=== PATIENT | female | born 1975 | race Caucasian/White ===

== ENCOUNTER 2017-01-03 13:50 | Emergency (ER) | payer OTHER ==
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
--- NOTE | 2017-01-03 14:29 | ED CLINICAL REPORT ---
Clinical Report - Physicians/Mid Levels [facility] [address] [place] [address] 01/03/2017 13:52 Patient: ASHLEY YARBROUGH Time Seen: 13:55. Arrived- By private vehicle. Historian- patient. HISTORY OF PRESENT ILLNESS Chief Complaint: HEADACHE. BACKPAIN. This started 2 days ago. It was gradual in onset. It is described as tightness. Located in the frontal and left parietal region. At its maximum, severity described as moderate. When seen in the E.D., severity described as moderate. The patient has had nausea and vomiting. The vomiting has occurred only once. No preceding symptoms, blurred vision, photophobia, numbness or weakness. (BACK SPASMS: Mid low back without radiation. No incontinence. Clonidine). Similar symptoms previously: Several times. REVIEW OF SYSTEMS No carbon monoxide exposure, tick bite, head injury, fever or decreased vision. No ear pain, sore throat, chest pain, difficulty breathing or abdominal pain. No black stools, bloody stools, constipation, urinary frequency or alteration in mental status. No difficulty with urination. The patient has had back pain. PAST HISTORY PCP: Looking - PROBLEMS: Headaches Back pain Prior Methadone use ADDITIONAL SURGERIES: Hysterectomy. Knee Surgery. Ovarian cysts . Tubal Ligation. SOCIAL HISTORY Smoker- current status unknown. ADDITIONAL NOTES The nursing notes have been reviewed. PHYSICAL EXAM Vital Signs: 01/03/2017 14:02 BP: 150/93. HR: 89. RR: 18. O2 saturation: 99%. Temp: 98.4 F. Appearance: Alert. No acute distress. Eyes: Pupils equal, round and reactive to light. No visual field deficit. Eyes normal inspection. No double vision. No dysconjugate gaze. No nystagmus. No pupillary exam. ENT: Pharynx normal. Neck: Normal inspection. CVS: Normal heart rate and rhythm. Heart sounds normal. Respiratory: No respiratory distress. Breath sounds normal. Abdomen: Soft and nontender. Extremities: Extremities exhibit normal ROM. No lower extremity edema. Neuro: Oriented X 3. Alert. Mood/affect normal. Speech normal. Cranial nerves normal (as tested). No cranial nerve deficit. No motor deficit. No sensory deficit. Reflexes normal. CLINICAL IMPRESSION Tension-type headache. Lumbar strain. INSTRUCTIONS (Establish primary care). Prescription Medications: Robaxin 750 mg: take 1-2 orally every 6 hours as needed for muscle spasm or pain. Dispense thirty (30). No refill. Substitution is permissible. Clonidine 0.2 mg: take 1 orally every 24 hours. Dispense twenty-five (25). Understanding of the discharge instructions verbalized by patient. Follow-up with: [facility], , , [address], [place] [address]; Jean-Pierre Mendoza MD, [facility], , [facility] [place], [address] [place] [address] Follow up. Call for an appointment. (Electronically signed by Pierce Tucker MD 01/05/2017 9:12)
--- NOTE | 2017-01-03 14:29 | ED CLINICAL REPORT ---
Clinical Report - Physicians/Mid Levels [facility] [address] [place] [address] 01/03/2017 13:52 Patient: ASHLEY YARBROUGH Time Seen: 13:55. Arrived- By private vehicle. Historian- patient. HISTORY OF PRESENT ILLNESS Chief Complaint: HEADACHE. BACKPAIN. This started 2 days ago. It was gradual in onset. It is described as tightness. Located in the frontal and left parietal region. At its maximum, severity described as moderate. When seen in the E.D., severity described as moderate. The patient has had nausea and vomiting. The vomiting has occurred only once. No preceding symptoms, blurred vision, photophobia, numbness or weakness. (BACK SPASMS: Mid low back without radiation. No incontinence. Clonidine). Similar symptoms previously: Several times. REVIEW OF SYSTEMS No carbon monoxide exposure, tick bite, head injury, fever or decreased vision. No ear pain, sore throat, chest pain, difficulty breathing or abdominal pain. No black stools, bloody stools, constipation, urinary frequency or alteration in mental status. No difficulty with urination. The patient has had back pain. PAST HISTORY PCP: Looking - PROBLEMS: Headaches Back pain Prior Methadone use ADDITIONAL SURGERIES: Hysterectomy. Knee Surgery. Ovarian cysts . Tubal Ligation. SOCIAL HISTORY Smoker- current status unknown. ADDITIONAL NOTES The nursing notes have been reviewed. PHYSICAL EXAM Vital Signs: 01/03/2017 14:02 BP: 150/93. HR: 89. RR: 18. O2 saturation: 99%. Temp: 98.4 F. Appearance: Alert. No acute distress. Eyes: Pupils equal, round and reactive to light. No visual field deficit. Eyes normal inspection. No double vision. No dysconjugate gaze. No nystagmus. No pupillary exam. ENT: Pharynx normal. Neck: Normal inspection. CVS: Normal heart rate and rhythm. Heart sounds normal. Respiratory: No respiratory distress. Breath sounds normal. Abdomen: Soft and nontender. Extremities: Extremities exhibit normal ROM. No lower extremity edema. Neuro: Oriented X 3. Alert. Mood/affect normal. Speech normal. Cranial nerves normal (as tested). No cranial nerve deficit. No motor deficit. No sensory deficit. Reflexes normal. CLINICAL IMPRESSION Tension-type headache. Lumbar strain. INSTRUCTIONS (Establish primary care). Prescription Medications: Robaxin 750 mg: take 1-2 orally every 6 hours as needed for muscle spasm or pain. Dispense thirty (30). No refill. Substitution is permissible. Clonidine 0.2 mg: take 1 orally every 24 hours. Dispense twenty-five (25). Understanding of the discharge instructions verbalized by patient. Follow-up with: [facility], , , [address], [place] [address]; Jean-Pierre Mendoza MD, [facility], , [facility], [address] [place] [address] Follow up. Call for an appointment. (Electronically signed by Pierce Tucker MD 01/05/2017 9:12)
--- NOTE | 2017-01-05 09:12 | ED MED RECONCILIATION SUMMARY ---
Patient: ASHLEY YARBROUGH Medication Reconciliation Report [facility] VisitID: [id number] [address] [place] [address] 41y, F Registration Date/Time: 01/03/2017 Weight: 86.6 kg Height/Length: 64 in. BMI: 32.8 ALLERGIES: No Known Drug Allergy The patient's Home Medications are listed below: THE FOLLOWING MEDICATIONS NEED TO BE RECONCILED: TraMADol HCl Oral The source(s) of the original Home Medication information: Not obtained. The following Medications were given to the patient in the Emergency Department: None. The following Medications were prescribed to the patient: Robaxin 750 mg: take 1-2 orally every 6 hours as needed for muscle spasm or pain. Dispense thirty (30). No refill. Substitution is permissible. -- Pierce Tucker MD Clonidine 0.2 mg: take 1 orally every 24 hours. Dispense twenty-five (25). -- Pierce Tucker MD
--- NOTE | 2017-01-05 09:12 | ED DISCHARGE INSTRUCTIONS ---
Patient: ASHLEY YARBROUGH General Instructions [facility] VisitID: [id number] [address], [place], [place] [id number] 41y, F Registration Date/Time: 01/03/2017 Tension-type headache. Lumbar strain. INSTRUCTIONS (Establish primary care). Prescription Medications: Robaxin 750 mg: take 1-2 orally every 6 hours as needed for muscle spasm or pain. Dispense thirty (30). No refill. Substitution is permissible. Clonidine 0.2 mg: take 1 orally every 24 hours. Dispense twenty-five (25). Understanding of the discharge instructions verbalized by patient. Follow-up with: [facility], , , [address], , [place] [phone]; Jean-Pierre Mendoza MD, [facility], , [facility], [address] [place] [address] Follow up. Call for an appointment. ADDITIONAL INFORMATION Tension Headache Muscle Tension Headache (also called "stress headache") is a very common cause of head pain. Under stress, some people tense the muscles of their shoulder, neck and scalp without knowing it. If this lasts long enough, a headache can occur. These headaches can be very painful and last for hours or even days. Home Care: If you were given pain medicine for this headache, do not drive yourself home. Arrange for a ride, instead. When you get home, try to sleep. You should feel much better when you wake up. Heat to the back of your neck may relieve neck spasm. Drink only clear liquids or eat a very light diet to avoid nausea/vomiting until symptoms improve. Preventing Future Headaches Identify the sources of stress in your life. These may not be obvious! Learn new ways to handle your stress, such as regular exercise, biofeedback, self-hypnosis and meditation. For more information about this, consult your doctor or go to a local bookstore and review the many books and tapes on this subject. At the first sign of a tension headache, take time out if possible. Remove yourself from the stressful situation, find a quiet comfortable place to sit or lie down and let yourself relax. Heat and deep massage of the tight areas in the neck and shoulders may help reduce muscle spasm. Medicine, such as ibuprofen (Advil or Motrin) or a prescribed muscle relaxant may be helpful at this point. Follow Up with your doctor if the headache is not better within the next 24 hours. If you have frequent headaches you should discuss a treatment plan with your primary care doctor. Ask if you can have medicine to take at home the next time you get a bad headache. This may avoid the need for a visit to the emergency department in the future. Poorly controlled chronic headaches may require a referral to a neurologist (headache specialist). Get Prompt Medical Attention if any of the following occur: Worsening of your head pain or no improvement within 24 hours Repeated vomiting (unable to keep liquids down) Fever of 100.4F (38C) or higher, or as directed by your healthcare provider Stiff neck Extreme drowsiness, confusion or fainting Dizziness, vertigo (dizziness with spinning sensation) Weakness of an arm or leg or one side of the face Difficulty with speech or vision Back Pain [Acute Or Chronic] Back pain is usually caused by an injury to the muscles or ligaments of the spine. Sometimes the disks that separate each bone in the spine may bulge and cause pain by pressing on a nearby nerve. Back pain may also appear after a sudden twisting/bending force (such as in a car accident), after a simple awkward movement, or lifting something heavy with poor body positioning. In either case, muscle spasm is often present and adds to the pain. Acute back pain usually gets better in one to two weeks. Back pain related to disk disease, arthritis in the spinal joints or spinal stenosis (narrowing of the spinal canal) can become chronic and last for months or years. Unless you had a physical injury (for example, a car accident or fall) X-rays are usually not ordered for the initial evaluation of back pain. If pain continues and does not respond to medical treatment, x-rays and other tests may be performed at a later time. Home Care: You may need to stay in bed the first few days. But, as soon as possible, begin sitting or walking to avoid problems with prolonged bed rest (muscle weakness, worsening back stiffness and pain, blood clots in the legs). When in bed, try to find a position of comfort. A firm mattress is best. Try lying flat on your back with pillows under your knees. You can also try lying on your side with your knees bent up towards your chest and a pillow between your knees. Avoid prolonged sitting. This puts more stress on the lower back than standing or walking. During the first two days after injury, apply an ICE PACK to the painful area for 20 minutes every 2-4 hours. This will reduce swelling and pain. HEAT (hot shower, hot bath or heating pad) works well for muscle spasm. You can start with ice, then switch to heat after two days. Some patients feel best alternating ice and heat treatments. Use the one method that feels the best to you. You may use acetaminophen (Tylenol) or ibuprofen (Motrin, Advil) to control pain, unless another pain medicine was prescribed. [NOTE: If you have chronic liver or kidney disease or ever had a stomach ulcer or GI bleeding, talk with your doctor before using these medicines.] Be aware of safe lifting methods and do not lift anything over 15 pounds until all the pain is gone. Follow Up with your doctor or this facility if your symptoms do not start to improve after one week. Physical therapy may be needed. [NOTE: If X-rays were taken, they will be reviewed by a radiologist. You will be notified of any new findings that may affect your care.] Get Prompt Medical Attention if any of the following occur: Pain becomes worse or spreads to your legs Weakness or numbness in one or both legs Loss of bowel or bladder control Numbness in the groin or genital area Methocarbamol Oral tablet What is this medicine? METHOCARBAMOL (meth oh ISHMAEL ba mole) helps to relieve pain and stiffness in muscles caused by strains, sprains, or other injury to your muscles. How should I use this medicine? Take this medicine by mouth with a full glass of water. Follow the directions on the prescription label. Take your medicine at regular intervals. Do not take your medicine more often than directed. Talk to your staff nuclear weapons officer regarding the use of this medicine in children. Special care may be needed. What side effects may I notice from receiving this medicine? Side effects that you should report to your doctor or health career technical counselor as soon as possible: allergic reactions like skin rash, itching or hives, swelling of the face, lips, or tongue blurred vision or changes in vision confusion fainting spells fever nausea or vomiting seizures Side effects that usually do not require medical attention (report to your doctor or health career technical counselor if they continue or are bothersome): dizziness drowsiness headache metallic taste What may interact with this medicine? alcohol or medicines that contain alcohol cholinesterase inhibitors like neostigmine, ambenonium, and pyridostigmine bromide other medicines that cause drowsiness What if I miss a dose? If you miss a dose, take it as soon as you can. If it is almost time for your next dose, take only the next dose. Do not take double or extra doses. Where should I keep my medicine? Keep out of the reach of children. Store at room temperature between 20 and 25 degrees C (68 and 77 degrees F). Keep container tightly closed. Throw away any unused medicine after the expiration date. What should I tell my health care provider before I take this medicine? They need to know if you have any of these conditions: kidney disease seizures an unusual or allergic reaction to methocarbamol, other medicines, foods, dyes, or preservatives or trying to get breast-feeding What should I watch for while using this medicine? You may get drowsy or dizzy. Do not drive, use machinery, or do anything that needs mental alertness until you know how this medicine affects you. Do not stand or sit up quickly, especially if you are an older patient. This reduces the risk of dizzy or fainting spells. Alcohol may interfere with the effect of this medicine. Avoid alcoholic drinks. You have been given the following additional information: Headache, Tension Back Pain (Acute Or Chronic) Methocarbamol Oral tablet (Electronically signed by Pierce Tucker MD 01/05/2017 9:12)
--- NOTE | 2017-01-05 09:12 | ED MAR SUMMARY ---
..... Medication Administration Record [facility] [address] [place], [place] [id number] Patient: ASHLEY YARBROUGH Visit ID: [id number] 41y, F Weight: 86.6 kg Height/Length: 64 in BMI: 32.8 ALLERGIES: No Known Drug Allergy
--- NOTE | 2017-01-05 09:12 | ED DISCHARGE INSTRUCTIONS ---
Patient: ASHLEY YARBROUGH General Instructions [facility] VisitID: [id number] [address], [place], [place] [id number] 41y, F Registration Date/Time: 01/03/2017 Tension-type headache. Lumbar strain. INSTRUCTIONS (Establish primary care). Prescription Medications: Robaxin 750 mg: take 1-2 orally every 6 hours as needed for muscle spasm or pain. Dispense thirty (30). No refill. Substitution is permissible. Clonidine 0.2 mg: take 1 orally every 24 hours. Dispense twenty-five (25). Understanding of the discharge instructions verbalized by patient. Follow-up with: [facility], , , [address], , [place] [id number]; Jean-Pierre Mendoza MD, [facility], , [facility], [address] [place] [address] Follow up. Call for an appointment. ADDITIONAL INFORMATION Tension Headache Muscle Tension Headache (also called "stress headache") is a very common cause of head pain. Under stress, some people tense the muscles of their shoulder, neck and scalp without knowing it. If this lasts long enough, a headache can occur. These headaches can be very painful and last for hours or even days. Home Care: If you were given pain medicine for this headache, do not drive yourself home. Arrange for a ride, instead. When you get home, try to sleep. You should feel much better when you wake up. Heat to the back of your neck may relieve neck spasm. Drink only clear liquids or eat a very light diet to avoid nausea/vomiting until symptoms improve. Preventing Future Headaches Identify the sources of stress in your life. These may not be obvious! Learn new ways to handle your stress, such as regular exercise, biofeedback, self-hypnosis and meditation. For more information about this, consult your doctor or go to a local bookstore and review the many books and tapes on this subject. At the first sign of a tension headache, take time out if possible. Remove yourself from the stressful situation, find a quiet comfortable place to sit or lie down and let yourself relax. Heat and deep massage of the tight areas in the neck and shoulders may help reduce muscle spasm. Medicine, such as ibuprofen (Advil or Motrin) or a prescribed muscle relaxant may be helpful at this point. Follow Up with your doctor if the headache is not better within the next 24 hours. If you have frequent headaches you should discuss a treatment plan with your primary care doctor. Ask if you can have medicine to take at home the next time you get a bad headache. This may avoid the need for a visit to the emergency department in the future. Poorly controlled chronic headaches may require a referral to a neurologist (headache specialist). Get Prompt Medical Attention if any of the following occur: Worsening of your head pain or no improvement within 24 hours Repeated vomiting (unable to keep liquids down) Fever of 100.4F (38C) or higher, or as directed by your healthcare provider Stiff neck Extreme drowsiness, confusion or fainting Dizziness, vertigo (dizziness with spinning sensation) Weakness of an arm or leg or one side of the face Difficulty with speech or vision Back Pain [Acute Or Chronic] Back pain is usually caused by an injury to the muscles or ligaments of the spine. Sometimes the disks that separate each bone in the spine may bulge and cause pain by pressing on a nearby nerve. Back pain may also appear after a sudden twisting/bending force (such as in a car accident), after a simple awkward movement, or lifting something heavy with poor body positioning. In either case, muscle spasm is often present and adds to the pain. Acute back pain usually gets better in one to two weeks. Back pain related to disk disease, arthritis in the spinal joints or spinal stenosis (narrowing of the spinal canal) can become chronic and last for months or years. Unless you had a physical injury (for example, a car accident or fall) X-rays are usually not ordered for the initial evaluation of back pain. If pain continues and does not respond to medical treatment, x-rays and other tests may be performed at a later time. Home Care: You may need to stay in bed the first few days. But, as soon as possible, begin sitting or walking to avoid problems with prolonged bed rest (muscle weakness, worsening back stiffness and pain, blood clots in the legs). When in bed, try to find a position of comfort. A firm mattress is best. Try lying flat on your back with pillows under your knees. You can also try lying on your side with your knees bent up towards your chest and a pillow between your knees. Avoid prolonged sitting. This puts more stress on the lower back than standing or walking. During the first two days after injury, apply an ICE PACK to the painful area for 20 minutes every 2-4 hours. This will reduce swelling and pain. HEAT (hot shower, hot bath or heating pad) works well for muscle spasm. You can start with ice, then switch to heat after two days. Some patients feel best alternating ice and heat treatments. Use the one method that feels the best to you. You may use acetaminophen (Tylenol) or ibuprofen (Motrin, Advil) to control pain, unless another pain medicine was prescribed. [NOTE: If you have chronic liver or kidney disease or ever had a stomach ulcer or GI bleeding, talk with your doctor before using these medicines.] Be aware of safe lifting methods and do not lift anything over 15 pounds until all the pain is gone. Follow Up with your doctor or this facility if your symptoms do not start to improve after one week. Physical therapy may be needed. [NOTE: If X-rays were taken, they will be reviewed by a radiologist. You will be notified of any new findings that may affect your care.] Get Prompt Medical Attention if any of the following occur: Pain becomes worse or spreads to your legs Weakness or numbness in one or both legs Loss of bowel or bladder control Numbness in the groin or genital area Methocarbamol Oral tablet What is this medicine? METHOCARBAMOL (meth oh ISHMAEL ba mole) helps to relieve pain and stiffness in muscles caused by strains, sprains, or other injury to your muscles. How should I use this medicine? Take this medicine by mouth with a full glass of water. Follow the directions on the prescription label. Take your medicine at regular intervals. Do not take your medicine more often than directed. 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 Special care may be needed. What side effects may I notice from receiving this medicine? Side effects that you should report to your doctor or health career services representative as soon as possible: allergic reactions like skin rash, itching or hives, swelling of the face, lips, or tongue blurred vision or changes in vision confusion fainting spells fever nausea or vomiting seizures Side effects that usually do not require medical attention (report to your doctor or health career services representative if they continue or are bothersome): dizziness drowsiness headache metallic taste What may interact with this medicine? alcohol or medicines that contain alcohol cholinesterase inhibitors like neostigmine, ambenonium, and pyridostigmine bromide other medicines that cause drowsiness What if I miss a dose? If you miss a dose, take it as soon as you can. If it is almost time for your next dose, take only the next dose. Do not take double or extra doses. Where should I keep my medicine? Keep out of the reach of children. Store at room temperature between 20 and 25 degrees C (68 and 77 degrees F). Keep container tightly closed. Throw away any unused medicine after the expiration date. What should I tell my health care provider before I take this medicine? They need to know if you have any of these conditions: kidney disease seizures an unusual or allergic reaction to methocarbamol, other medicines, foods, dyes, or preservatives or trying to get breast-feeding What should I watch for while using this medicine? You may get drowsy or dizzy. Do not drive, use machinery, or do anything that needs mental alertness until you know how this medicine affects you. Do not stand or sit up quickly, especially if you are an older patient. This reduces the risk of dizzy or fainting spells. Alcohol may interfere with the effect of this medicine. Avoid alcoholic drinks. You have been given the following additional information: Headache, Tension Back Pain (Acute Or Chronic) Methocarbamol Oral tablet (Electronically signed by Pierce Tucker MD 01/05/2017 9:12)
--- NOTE | 2017-01-05 09:12 | ED MED RECONCILIATION SUMMARY ---
Patient: ASHLEY YARBROUGH Medication Reconciliation Report [facility] VisitID: [id number] [address] [place] [address] 41y, F Registration Date/Time: 01/03/2017 Weight: 86.6 kg Height/Length: 64 in. BMI: 32.8 ALLERGIES: No Known Drug Allergy The patient's Home Medications are listed below: THE FOLLOWING MEDICATIONS NEED TO BE RECONCILED: TraMADol HCl Oral The source(s) of the original Home Medication information: Not obtained. The following Medications were given to the patient in the Emergency Department: None. The following Medications were prescribed to the patient: Robaxin 750 mg: take 1-2 orally every 6 hours as needed for muscle spasm or pain. Dispense thirty (30). No refill. Substitution is permissible. -- Pierce Tucker MD Clonidine 0.2 mg: take 1 orally every 24 hours. Dispense twenty-five (25). -- Pierce Tucker MD
--- NOTE | 2017-01-05 09:12 | ED MAR SUMMARY ---
..... Medication Administration Record [facility] [address] [place] [id number] Patient: ASHLEY YARBROUGH Visit ID: [id number] 41y, F Weight: 86.6 kg Height/Length: 64 in BMI: 32.8 ALLERGIES: No Known Drug Allergy
== END 2017-01-03 14:35 | disposition home or self-care (01) ==
LOC: ED SRH 13:50
DX: G44.209 Tension-type headache, unspecified, not intractable (principal); S39.012A Strain of muscle, fascia and tendon of lower back, initial encounter